=== PATIENT | male | born 1975 | race Caucasian/White ===

== ENCOUNTER 2022-06-12 17:03 | Emergency (ER) | payer OTHER, SELFPAY ==
--- NOTE | 2022-06-12 17:05 | ED.URI ---
HPI - URI/Sore Throat General Chief Complaint: Upper Respiratory Infection Stated Complaint: uri Time Seen by Provider: 06/12/22 17:12 Source: patient, RN notes reviewed and old records reviewed Mode of arrival: ambulatory Limitations: no limitations History of Present Illness HPI Narrative: 47-year-old male presents to the [facility] with complaints of continued cough and congestion. Patient states that he had home positive COVID test end of April. Was seen at [facility] had an x-ray and prescribed steroids and cough medicine on May 17 per medical record. Had followed up with his primary care provider on May 27 prescribed a Z-Alberto. Patient states that he has not gotten any better. Denies any fevers or chest pain. MD elicited complaint: cough Onset (ago): week(s) (4) Related Data Home Medications Medication Instructions Recorded Confirmed atenolol 50 mg tablet 50 mg PO DAILY 06/12/22 06/12/22 empagliflozin 25 mg tablet 25 mg PO DAILY 06/12/22 06/12/22 (Jardiance) fexofenadine 180 mg tablet 180 mg PO DAILY 06/12/22 06/12/22 (Allergy Relief (fexofenadine)) lisinopril 5 mg tablet 5 mg PO DAILY 06/12/22 06/12/22 metformin 500 mg tablet 500 mg PO BID 06/12/22 06/12/22 montelukast 10 mg tablet 10 mg PO DAILY 06/12/22 06/12/22 sildenafil 100 mg tablet 100 mg PO DAILY 06/12/22 06/12/22 sitagliptin 100 mg tablet (Januvia) 100 mg PO DAILY 06/12/22 06/12/22 Allergies Allergy/AdvReac Type Severity Reaction Status Date / Time No Known Allergies Allergy Mild Verified 06/12/22 17:07 Review of Systems Review of Systems: All systems reviewed & are unremarkable except as noted in HPI and below Constitutional: Constitutional: Reports no additional constitutional complaints, Denies chills and Denies fever(s) Eyes: Eyes: Reports no additional eye complaints ENT: Reports system reviewed and no additional complaints, except as documented Cardiovascular: Cardiovascular: Reports no additional cardiovascular complaints Respiratory: Respiratory: Reports as per HPI, Reports chest congestion and Reports cough Gastrointestinal: Gastrointestinal: Reports no additional gastrointestinal complaints Musculoskeletal: Musculoskeletal: Reports no additional musculoskeletal complaints Integumentary/Breasts: Skin/Breast: Reports system reviewed and no additional complaints, except as docu Neurologic: Reports system reviewed and no additional complaints, except as documented Psychiatric: Psychiatric: Reports no additional psychiatric complaints Allergic/Immunologic: Allergic/Immunologic: Reports no additional allergic/immunologic complaints PMFSH Past Medical History Medical History (Updated 06/12/22 @ 19:22 by Risa Garcia APRN) Diabetes mellitus type 2 in obese History of high blood pressure Social History Social History (Updated 06/12/22 @ 19:22 by Risa Garcia APRN) Alcohol intake: current Living arrangements: with family Gender identity (if verbalized by the patient): Male Comments At the time of my signature, I reviewed and agree with the nursing past medical, surgical, social, and family history. There is no relevant family history pertinent to the patient complaint. Exam Const: General: healthy appearing, no acute distress and alert Nutritional Appearance: well nourished Orientation/consciousness: patient oriented x3 Limitations: no limitations HENMT: Head: normal to inspection Ears: external ears normal, TM's normal bilaterally and EAC's normal General nose exam: Normal external nose present Face and sinus: normal facial exam Throat: posterior oropharynx normal and uvula midline Eyes: General: appearance normal, both eyes and all related structures Pupils: Equal, round and reactive pupils present Neck: Neck: normal visual inspection, no lymphadenopathy and no meningeal signs Chest: Chest palpation & inspection: normal inspection of the chest Resp: Effort & Inspection: normal respiratory
[2022-06-12 17:12] VITALS: BP 142/82; PULSE 65; RESP 16; TEMP 36.4; O2SAT 99
== END 2022-06-12 17:34 | disposition home or self-care (01) ==
PROVIDERS: Emergency Provider Nurse Practitioner
DX: J40 Bronchitis, not specified as acute or chronic (principal); U09.9 Post COVID-19 condition, unspecified; E11.9 Type 2 diabetes mellitus without complications; I10 Essential (primary) hypertension
CPT/HCPCS: 99213; G0463

== ENCOUNTER 2022-09-27 08:23 | Emergency (ER) | payer OTHER, SELFPAY ==
--- NOTE | 2022-09-27 08:27 | ED.GENADULT ---
HPI - General Adult General Chief complaint: Extremity Problem,Nontraumatic Stated complaint: swelling right thigh Time Seen by Provider: 09/27/22 08:27 Source: patient Mode of arrival: ambulatory Limitations: no limitations History of Present Illness HPI narrative: 47-year-old male patient presents to [facility] with complaints of right thigh swelling x1 week. Patient states he had something similar happen in the past where he had a deep cyst into the area causing swelling to the same thigh. Patient states he had some chafing earlier this week that he put some Aquaphor on into the groin area but states he is not sure if that could cause the thigh swelling. Patient denies any pain to the area. Denies any redness denies any warmth to the area. Patient denies any recent trauma. The patient states that the swelling is over where they have had a previous cyst removed. Denies any fevers, body aches or chills. Related Data Home Medications Medication Instructions Recorded Confirmed atenolol 50 mg tablet 50 mg PO DAILY 06/12/22 06/12/22 empagliflozin 25 mg tablet 25 mg PO DAILY 06/12/22 06/12/22 (Jardiance) fexofenadine 180 mg tablet 180 mg PO DAILY 06/12/22 06/12/22 (Allergy Relief (fexofenadine)) lisinopril 5 mg tablet 5 mg PO DAILY 06/12/22 06/12/22 metformin 500 mg tablet 500 mg PO BID 06/12/22 06/12/22 montelukast 10 mg tablet 10 mg PO DAILY 06/12/22 06/12/22 sildenafil 100 mg tablet 100 mg PO DAILY 06/12/22 06/12/22 sitagliptin phosphate 100 mg 100 mg PO DAILY 06/12/22 06/12/22 tablet (Januvia) rosuvastatin 10 mg tablet 10 mg PO DAILY 09/27/22 09/27/22 Allergies Allergy/AdvReac Type Severity Reaction Status Date / Time No Known Allergies Allergy Mild Verified 09/27/22 08:42 Review of Systems Review of Systems: CONSTITUTIONAL: Denies fever, chills, or sweats. EYES: Denies visual changes, redness, or discharge. ENT: Denies rhinorrhea, congestion, sore throat, or otalgia. CARDIOVASCULAR: Denies chest pain, palpitations, or edema. RESPIRATORY: Denies cough or dyspnea. GASTROINTESTINAL: Denies abdominal pain, nausea, vomiting, or diarrhea. GENITOURINARY: Denies dysuria or hematuria. SKIN: Denies rash or itching. MUSCULOSKELETAL: Denies back pain, joint pain, or myalgia. Positive right-sided swelling NEUROLOGIC: Denies headache, numbness, or weakness. PSYCHIATRIC: Denies anxiety or depression. [facility] Past Medical History Medical History (Updated 09/27/22 @ 08:54 by JACOB Daley) Carpal tunnel syndrome Right Diabetes mellitus type 2 in obese GERD (gastroesophageal reflux disease) History of high blood pressure Surgical History Surgical History (Updated 09/27/22 @ 08:29 by JACOB Daley) History of appendectomy Family History Family History (Updated 09/27/22 @ 08:29 by JACOB Daley) Other Heart disease Social History Social History Alcohol intake: current Gender identity (if verbalized by the patient): Male Comments At the time of my signature I agree with nursing past medical history, surgical, social, and family history. There is no relevant family history pertinent to the presenting complaint. Exam Narrative: GENERAL: Well-appearing, well-nourished, and in no acute distress. HEAD: Normocephalic, atraumatic. EYES: PERRLA and EOMI. ENT: Nares clear, no rhinorrhea or epistaxis. Mucous membranes moist. NECK: Supple. No lymphadenopathy CHEST: Clear to auscultation. No respiratory distress. HEART: Regular rate and rhythm. No murmur heard. Normal peripheral pulses. ABDOMEN: Soft, nontender, nondistended, normal active bowel sounds. EXTREMITIES: Normal range of motion. No edema. Patient has slight soft tissue swelling noted to the right inner thigh compared to the left. There is no warmth, redness or masses on palpation. There is what appears to be slight scar from previous cyst. There is no pain on palpitatio
[2022-09-27 08:36] VITALS: BP 150/89; PULSE 67; RESP 16; TEMP 37.1; O2SAT 99
== END 2022-09-27 09:09 | disposition home or self-care (01) ==
PROVIDERS: Emergency Provider Nurse Practitioner Family
DX: R22.41 Localized swelling, mass and lump, right lower limb (principal); E11.9 Type 2 diabetes mellitus without complications; K21.9 Gastro-esophageal reflux disease without esophagitis; I10 Essential (primary) hypertension; E66.9 Obesity, unspecified; Z68.41 Body mass index [BMI] 40.0-44.9, adult
CPT/HCPCS: 99211; G0463

== ENCOUNTER 2024-11-06 14:27 | Emergency (ER) | payer OTHER, SELFPAY ==
[2024-11-06 14:52] VITALS: BP 163/94; PULSE 84; RESP 16; TEMP 36.6; O2SAT 97
--- NOTE | 2024-11-06 15:44 | ED.URI ---
HPI - URI/Sore Throat General Chief Complaint: Upper Respiratory Infection Stated Complaint: Nausea/Cough Time Seen by Provider: 11/06/24 15:44 Source: patient, RN notes reviewed and old records reviewed Mode of arrival: ambulatory Limitations: no limitations History of Present Illness HPI Narrative: Patient presents with complaints of sinus pain and pressure, sore throat for 10 days to 2 weeks. He reports that he is more tired than normal. Has been taking [id number] medications with minimal relief. He does have some associated body aches. He denies any shortness of breath, but does report intermittent cough Related Data Home Medications ?Medication ?Instructions ?Recorded ?Confirmed ?Last Taken ?Type atenolol 50 mg tablet 50 mg PO DAILY 06/12/22 09/27/22 Unknown History empagliflozin 25 mg tablet 25 mg PO DAILY 06/12/22 09/27/22 Unknown History (Jardiance) lisinopril 5 mg tablet 5 mg PO DAILY 06/12/22 09/27/22 Unknown History metformin 500 mg tablet 500 mg PO BID 06/12/22 09/27/22 Unknown History sildenafil 100 mg tablet 100 mg PO DAILY 06/12/22 09/27/22 Unknown History sitagliptin phosphate 100 mg 100 mg PO DAILY 06/12/22 09/27/22 Unknown History tablet (Januvia) rosuvastatin 10 mg tablet 10 mg PO DAILY 09/27/22 09/27/22 Unknown History Allergies Allergy/AdvReac Type Severity Reaction Status Date / Time No Known Allergies Allergy Mild Verified 11/06/24 15:21 Review of Systems Review of Systems: All systems reviewed & are unremarkable except as noted in HPI and below Constitutional: Constitutional: Reports no additional constitutional complaints, Reports headache(s) and Reports lethargy ENT: Reports system reviewed and no additional complaints, except as documented, Reports headache(s), Reports post nasal drip, Reports sinus pain, Reports sinus pressure and Reports sore throat Cardiovascular: Cardiovascular: Reports no additional cardiovascular complaints Respiratory: Respiratory: Reports no additional respiratory complaints Gastrointestinal: Gastrointestinal: Reports no additional gastrointestinal complaints [facility] Past Medical History Medical History (Updated 11/06/24 @ 16:11 by Trina Solis APRN) GERD (gastroesophageal reflux disease) Carpal tunnel syndrome Right History of high blood pressure Diabetes mellitus type 2 in obese Surgical History Surgical History History of appendectomy Family History Family History Other Heart disease Social History Social History Alcohol intake: current Living arrangements: with family Gender identity (if verbalized by the patient): Male Comments At the time of my signature, I reviewed and agree with the nursing past medical, surgical, social, and family history. There is no relevant family history pertinent to the patient complaint. Exam Const: General: cooperative, no acute distress, alert and awake Orientation/consciousness: oriented to person, oriented to place and oriented to time HENMT: Head: normal to inspection Ears: TM's normal bilaterally Face and sinus: sinus tenderness Mouth: Yes moist mucous membranes Throat: posterior oropharynx abnormal erythema and postnasal drainage Resp: Effort & Inspection: normal respiratory effort and able to speak in complete sentences Auscultation: clear to auscultation bilaterally, no crackles, no rales, no rhonchi and no wheezes Cardio: Palpation: normal PMI Rate: regular rate Rhythm: regular rhythm Heart sounds: S1 normal heart sound present and S2 normal heart sound present Neuro: General: oriented to person, oriented to place and oriented to time Cranial nerves: Yes CN's II-XII intact bilaterally Psych: Appearance: grossly normal Thought process: Normal thought process present Insight: Good insight present (Psych) Judgement: Good judgement present (Psych) Course Course Level of Care: Express Care Visit Vital Signs Vital signs: Vital Signs Temperature 97.9 F 11/06/24 14:52 Pulse Rate 84 11/06/24 14:52 Respiratory Rate 16 11/06/24 14:52 Blood Pressure 163/94 H 11/06/24 14:52 Pulse Oximetry 97 11/06/24 14:52 Oxygen Delivery Room Air 11/06/24 14:52 Temperature 97.9 F 11/06/24 14:52 Pulse Rate 84 11/06/24 14:52 Respiratory Rate 16 11/06/24 14:52 Blood Pressure 163/94 H 11/06/24 14:52 Pulse Oximetry 97 11/06/24 14:52 Oxygen Delivery Room Air 11/06/24 14:52 Reviewed MDM - URI/Sore Throat MDM Narrative Medical decision making narrative: Take medications as prescribed. Follow with primary care provider. Emergency department for new or worse symptoms. Patient is nontoxic appearing, stable for discharge home on p.o. antibiotic therapy for sinusitis. Discharge instructions reviewed with patient, as well as provided in writing per nursing staff. The instructions also include specific and strict return/GO TO THE ER as well as f/u information. All questions have been answered, and the patient deny any further questions with discharge and discharge plan Some parts of this dictation were generated by voice recognition software and may contain typographical and/or grammatical inaccuracies. Differential Diagnosis Differential diagnosis: Likely upper respiratory infection, otitis media, viral infection, bronchitis, influenza and pharyngitis Medical Records Attestation: I reviewed the patient's medical records. Lab Data Attestation: I reviewed the patient's lab results. Discharge Plan Discharge Clinical Impression: Elevated blood pressure reading Sinusitis Qualifiers: Sinusitis location: maxillary Chronicity: acute Recurrence: not specified as recurrent Qualified Code(s): J01.00 - Acute maxillary sinusitis, unspecified Patient Disposition: Home, Self-Care Condition: Stable Instructions: Antibiotic Form, Sinusitis (ED) Additional Instructions: Take medications as prescribed. Follow with primary care provider. Emergency department for new or worse symptoms Patient Language: Armenian Prescriptions: New amoxicillin-pot clavulanate 875-125 mg tablet 1 tablet PO Q12H Qty: 14 0RF No Action sildenafil 100 mg tablet 100 mg PO DAILY metformin 500 mg tablet 500 mg PO BID lisinopril 5 mg tablet 5 mg PO DAILY atenolol 50 mg tablet 50 mg PO DAILY Januvia 100 mg tablet 100 mg PO DAILY Jardiance 25 mg tablet 25 mg PO DAILY (DME) Space Chamber Spacer See Rx Instructions .ROUTE .MEDSUPPLY Qty: 1 0RF Rx Instructions: As directed rosuvastatin 10 mg tablet 10 mg PO DAILY Follow-up/Referrals: Isis,Orlando Olivas MD [Primary Care Provider] - 2 Weeks Stand Alone Forms: Work/School Release IP Time of Disposition: 16:11
[2024-11-06 15:51] LABS: EDSTREPNEGPOS1 Negative (Negative)
== END 2024-11-06 16:20 | disposition home or self-care (01) ==
PROVIDERS: Emergency Provider Nurse Practitioner Family; PCP Family Medicine Sports Medicine
DX: I10 Essential (primary) hypertension (principal); J01.00 Acute maxillary sinusitis, unspecified; K21.9 Gastro-esophageal reflux disease without esophagitis; E11.9 Type 2 diabetes mellitus without complications; Z79.84 Long term (current) use of oral hypoglycemic drugs; E66.9 Obesity, unspecified
CPT/HCPCS: 87081; 87880; 99213; G0463